=== PATIENT | female | born 1995 | race Caucasian/White ===

== ENCOUNTER 2018-04-01 16:01 | Outpatient (CLI) | payer BC ==
--- NOTE | 2018-04-01 17:59 | RAD ---
TWO VIEW CHEST: 04/01/18 No prior comparison. HISTORY: Chest pain. FINDINGS: Lungs are mildly hyperinflated without consolidation, effusion, or pneumothorax. The cardiac silhouet te is normal in size. Osseous structures are intact. IMPRESSION: No focal consolidation. POS: C
== END 2018-04-01 16:02 | disposition home or self-care (01) ==
LOC: BICRAD 16:01
PROVIDERS: ATTEND Family Medicine
DX: R07.9 Chest pain, unspecified (principal)
CPT/HCPCS: 71046